=== PATIENT | male | born 1965 | race Caucasian/White ===

== ENCOUNTER 2017-11-15 23:52 | Emergency (ER) | payer MEDICAID ==
[~2017-11-15] VITALS: Ht 185.4 cm; Wt 81.6 kg
[2017-11-16] VITALS: BP 125/74
[2017-11-16] MEDS ORDERED: KEFLEX500 MG ORAL (01:36)
--- NOTE | 2017-11-16 01:37 | Emergency Room Report ---
History of Present Illness General Chief Complaint: Laceration Source: Patient Present Illness HPI Is a 51-year-old male who is left-hand dominant. He presents with a laceration to base of his left index finger. He was trying to open a metal can of being. He pushed the lid now and send a laceration. No other injury. He washed it out. Tetanus is up-to-date. Allergies: Coded Allergies: No Known Allergies (Unverified , 11/16/17) Patient History Past Medical History: see triage record, old chart reviewed Past Surgical History: none Pertinent Family History: none Social History: Denies: smoking Immunizations: UTD Reviewed Nursing Documentation: PMH: Agreed, PSxH: Agreed Nursing Documentation-PMH Past Medical History: No Stated History Review of Systems Eye: Denies: eye pain, blurred vision ENT: Denies: ear pain, nose congestion, throat swelling Respiratory: Denies: cough, shortness of breath Cardiovascular: Denies: chest pain, palpitations Gastrointestinal: Denies: abdominal pain, diarrhea, nausea, vomiting Musculoskeletal: Denies: back pain, joint pain Skin: Denies: rash Neurological: Denies: headache, numbness Endocrine: Denies: increased thirst, increased urine Hematologic/Lymphatic: Denies: easy bruising All Other Systems: negative except mentioned in HPI Physical Exam Vital Signs Date Time Temp Pulse Resp B/P (MAP) Pulse Ox O2 Delivery O2 Flow Rate FiO2 11/15/17 23:59 97.9 60 14 125/74 95 Room Air vitals normal Sp02 EP Interpretation: reviewed, normal General Appearance: well appearing, no apparent distress, alert Head: normocephalic, atraumatic Eyes: bilateral eye PERRL, bilateral eye EOMI ENT: hearing grossly normal, normal pharynx Neck: full range of motion, supple, no meningismus Respiratory: chest non-tender, lungs clear, normal breath sounds Cardiovascular #1: regular rate, rhythm, no murmur Gastrointestinal: normal bowel sounds, non tender, no mass, no organomegaly, no bruit, non-distended Musculoskeletal: back normal, gait/station normal, normal range of motion, other - 3 cm laceration to the base o MCP joint of the left index finger. No foreign body. No Tendon laceration. Psychiatric: mood/affect normal Skin: warm/dry Procedures Laceration/Wound Repair Laceration/Wound Repair : Consent: Verbal Wound Location: upper extremity Wound's Depth, Shape: linear, irregular Wound Length (cm): 3 Wound Explored: clean Irrigated w/ Saline (ccs): 1000 Betadine Prep?: Yes Anesthesia: 1% Lidocaine Volume Anesthetic (ccs): 2 Wound Repaired With: sutures Suture Size/Type: 4:0, proline Number of Sutures: 5 Patient Tolerated: Well Complications: None Medical Decision Making Diagnostic Impression: Primary Impression: Finger laceration Qualified Codes: S61.211A - Laceration without foreign body of left index finger without damage to nail, initial encounter ER Course Patient presents with a laceration to the base of the left index finger over the palm. No foreign body. No tendon laceration. We'll discharge home. Last Vital Signs Date Time Temp Pulse Resp B/P (MAP) Pulse Ox O2 Delivery O2 Flow Rate FiO2 11/16/17 00:00 97.9 60 14 125/74 95 Room Air Status: improved Disposition: HOME, SELF-CARE Condition: Improved Scripts Cephalexin* (KEFLEX*) 500 Mg Capsule 500 MG ORAL TID, #21 CAP 0 Refills Prov: HAKEEM PIPER M.D. 11/16/17 Patient Instructions: Laceration Care, Adult Additional Instructions: Sutures out in 10 days. Return if infected. HAKEEM PIPER M.D. Nov 16, 2017 01:36
[2017-11-16 01:45] VITALS: BP 125/74
== END 2017-11-16 01:40 | disposition home or self-care (01) ==
LOC: EMR 11-16 00:19
DX: S61.211A Laceration without foreign body of left index finger without damage to nail, initial encounter (principal); W26.8XXA Contact with other sharp object(s), not elsewhere classified, initial encounter; Y92.9 Unspecified place or not applicable
CPT/HCPCS: 12002; 99284; Z7502

== ENCOUNTER 2017-11-25 22:17 | Emergency (ER) | payer MEDICAID ==
[~2017-11-25] VITALS: Ht 185.4 cm; Wt 81.6 kg
[~2017-11-25 22:17] MED LIST: KEFLEX500 MG ORAL
[2017-11-25 22:35] VITALS: BP 120/78
[2017-11-25 22:50] VITALS: BP 122/74
[2017-11-25] MEDS ORDERED: CORTISPORIN EAR10 ML OTIC (22:53)
[2017-11-25 22:59] VITALS: BP 122/74
--- NOTE | 2017-11-26 02:21 | Emergency Room Report ---
History of Present Illness General Chief Complaint: Wound Recheck/Suture Removal Source: Patient Present Illness HPI Patient presents for evaluation of finger laceration Suture removal He had this placed approximately 10 days ago He feels area is healing well While he was here also complains of right ear pain He reports that he swims a lot And the pain has continued now over the past several days Denies any chest pain or shortness of breath Allergies: Coded Allergies: No Known Allergies (Unverified , 11/16/17) Patient History Past Medical History: see triage record Pertinent Family History: none Reviewed Nursing Documentation: PMH: Agreed, PSxH: Agreed Nursing Documentation-PMH Past Medical History: No Stated History Review of Systems All Other Systems: negative except mentioned in HPI Physical Exam Vital Signs Date Time Temp Pulse Resp B/P (MAP) Pulse Ox O2 Delivery O2 Flow Rate FiO2 11/25/17 22:27 97.8 61 18 117/74 96 Room Air 97.9 Sp02 EP Interpretation: reviewed, normal General Appearance: well appearing, no apparent distress Head: normocephalic, atraumatic Eyes: bilateral eye PERRL, bilateral eye EOMI ENT: other - Right ear canal does show some erythema, still patent, no perforation or tympanic membrane erythema Neck: supple, thyroid normal Respiratory: lungs clear Musculoskeletal: normal inspection Neurologic: alert, oriented x3, responsive Skin: other - [address] approximately left index finger on the palmar side Medical Decision Making Diagnostic Impression: Primary Impression: wound check Additional Impression: otitis externa ER Course She has clinical findings of otitis externa With regards to the sutures the area was cleansed 3 lateral sutures were removed 2 sutures more medially are left in place As there appears to be still continued feeling patient will require likely another 5-6 days Prior to attempt at removal Last Vital Signs Date Time Temp Pulse Resp B/P (MAP) Pulse Ox O2 Delivery O2 Flow Rate FiO2 11/25/17 22:59 98.2 74 16 122/74 99 Room Air 98.2 Status: improved Disposition: HOME, SELF-CARE Condition: Improved Scripts Neomycin/Polymyxin B Sulf/Hc* (CORTISPORIN EAR SOLUTION*) 10 Ml Solution 2 DROP OTIC FOUR TIMES A DAY for 7 Days, #1 EA Instill in affected ear as directed for 7 days Prov: FRANCHESCA DAVID D.O. 11/25/17 Referrals: NON PHYSICIAN (PCP) Patient Instructions: Otitis Externa, [id number], Wound Check Additional Instructions: 3 of the sutures were removed today, there are 2 sutures that are left in place. Please return approximately 4-5 days to have them removed FRANCHESCA DAVID D.O. Nov 26, 2017 02:21
== END 2017-11-25 22:59 | disposition home or self-care (01) ==
LOC: EMR 22:48
DX: S61.211D Laceration without foreign body of left index finger without damage to nail, subsequent encounter (principal); X58.XXXD Exposure to other specified factors, subsequent encounter; H60.91 Unspecified otitis externa, right ear; Z48.02 Encounter for removal of sutures
CPT/HCPCS: 99283

== ENCOUNTER 2017-11-30 17:57 | Emergency (ER) | payer MEDICAID ==
[~2017-11-30] VITALS: Ht 185.4 cm; Wt 81.6 kg
[~2017-11-30 17:57] MED LIST changes: +CORTISPORIN EAR10 ML OTIC
[2017-11-30 18:22] VITALS: BP 110/60
--- NOTE | 2017-11-30 18:35 | Emergency Room Report ---
History of Present Illness General Chief Complaint: Wound Recheck/Suture Removal Source: Patient Present Illness HPI 51-year-old male patient presents ER for wound recheck of sutures in left index finger. Patient was previously seen 2 weeks ago for laceration on palm of hand sustained while opening a can. Patient reports to sutures being placed for the laceration. Patient reports being seen for wound recheck 2 days after initial sutures were placed; states he was seen 7 days after initial wound recheck to have sutures removed; states sutures were not removed because wound was not "closed enough". Patient denies erythema, TTP, ecchymosis, edema. Patient denies pain with movement. Patient denies fever, chest pain, SOB. wound recheck left palmar MTP jint of index finger no signs of infeciton, no erythema, edmea, ecchymosis Allergies: Coded Allergies: No Known Allergies (Unverified , 11/16/17) Patient History Past Medical History: see triage record Reviewed Nursing Documentation: PMH: Agreed, PSxH: Agreed Nursing Documentation-PMH Past Medical History: No Stated History Review of Systems All Other Systems: negative except mentioned in HPI Physical Exam Vital Signs Date Time Temp Pulse Resp B/P (MAP) Pulse Ox O2 Delivery O2 Flow Rate FiO2 11/30/17 18:09 98.0 57 18 110/60 95 Room Air 98.1 Sp02 EP Interpretation: reviewed, normal General Appearance: well appearing, no apparent distress, alert, GCS 15, non- toxic Head: normocephalic, atraumatic Eyes: bilateral eye normal inspection, bilateral eye PERRL ENT: hearing grossly normal, normal pharynx, normal voice, uvula midline, moist mucus membranes Respiratory: normal inspection, lungs clear, normal breath sounds, no accessory muscle use, no wheezing, speaking full sentences Cardiovascular #1: regular rate, rhythm Musculoskeletal: back normal, digits/nails normal, gait/station normal, normal range of motion Neurologic: alert, oriented x3, responsive, motor strength/tone normal, normal gait Psychiatric: mood/affect normal Skin: no rash, warm/dry, palpation normal, other - 2 blue sutures in healed 1cm linear laceration on palmar crease over MTP of index finger of left hand Medical Decision Making PA Attestation Dr. Shi is my supervising physician with whom patient management has been discussed with. Diagnostic Impression: Primary Impression: Encounter for wound re-check ER Course 51 yo male patient presents to ER for wound check. DDx include but are not limited to wound check, cellulitis, contusion. No bleeding, erythema, edema, or signs of infection are present. 2 sutures were removed. Wound was cleaned and redressed. Bacitracin applied to site. Instructed patient on proper care of wound to prevent further injury. At this time pt. is stable for d/c to home. Will provide printed patient care instructions, and any necessary prescriptions. Patient instructed to follow with primary care provider for further treatment and referral as needed. Care plan and follow up instructions have been discussed with the patient prior to discharge. Patient reports understanding and agreement to treatment plan. Patient questions asked and answered. ER precautions given, patient instructed to return to ER immediately for any new or worsening of symptoms. Last Vital Signs Date Time Temp Pulse Resp B/P (MAP) Pulse Ox O2 Delivery O2 Flow Rate FiO2 11/30/17 18:22 98.1 18 110/60 95 Room Air 98.1 11/30/17 18:09 57 Disposition: HOME, SELF-CARE Condition: Stable Patient Instructions: Wound Check Additional Instructions: Followup with primary care provider for further treatment and referral. Take medications as directed. Patient questions asked and answered. ER precautions given, patient instructed to return to ER immediately for any new or worsening of symptoms. Rober Mehta Nov 30, 2017 18:35
[2017-11-30] MEDS ORDERED: Bacitracin Oint UD TOPIC ONE (18:45)
[2017-11-30 18:57] VITALS: BP 110/60
== END 2017-11-30 18:57 | disposition home or self-care (01) ==
LOC: EMR 18:35
DX: S61.412D Laceration without foreign body of left hand, subsequent encounter (principal); Z48.02 Encounter for removal of sutures
CPT/HCPCS: 99283

== ENCOUNTER 2019-02-07 10:55 | Emergency (ER) | payer MEDICAID ==
[~2019-02-07] VITALS: Ht 185.4 cm; Wt 81.6 kg
[2019-02-07 10:59] VITALS: BP 118/67
[2019-02-07] MEDS ORDERED: NKM (11:02)
[2019-02-07] MEDS ORDERED: GENTAMICIN SUL3.5 GM OP (11:54)
[2019-02-07 12:08] VITALS: BP 125/69
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
[2019-03-06] MEDS ORDERED: NKM (11:52)
[2019-03-06] MEDS ORDERED: TYLENOL EXTRA500 MG ORAL (13:41)
[2019-03-06] MEDS ORDERED: FUTURO RESTORI1 EACH MC (13:41)
== END 2019-02-07 12:10 | disposition home or self-care (01) ==
LOC: EMR 11:14
DX: H57.11 Ocular pain, right eye (principal)
CPT/HCPCS: 99282

== ENCOUNTER 2019-02-12 17:25 | Emergency (ER) | payer MEDICAID ==
[~2019-02-12] VITALS: Ht 185.4 cm; Wt 81.6 kg
[~2019-02-12 17:25] MED LIST changes: +GENTAMICIN SUL3.5 GM OP; +NKM
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
[2019-02-12 18:53] VITALS: BP 120/67
--- NOTE | 2019-02-12 18:55 | NUR ---
ED Nurse Note:pt. had x-rays done and bacitricin ointment was placed on left knee with dry dressing
[2019-02-12] MEDS ORDERED: Bacitracin Oint UD TOPIC ONE (19:00)
--- NOTE | 2019-02-12 19:10 | NUR ---
HAND-OFF: Report given to Laura.
--- NOTE | 2019-02-12 19:11 | NUR ---
ED Nurse Note: Received report from Melissa/HARSHIL. Pt is A/O X 4. VSS, will continue to monitor.
--- NOTE | 2019-02-12 19:35 | NUR ---
ED Nurse Note: Pt was sent down for CT.
[2019-02-12] MEDS ORDERED: Isovue-300 100ml vial INJ PRN (19:45)
--- NOTE | 2019-02-12 19:50 | NUR ---
ED Nurse Note: Pt returned from CT.
--- NOTE | 2019-02-12 20:23 | NUR ---
ED Nurse Note: Blood sample collected and sent to Lab.
[2019-02-12 20:40] LABS: BASOPHILS % (AUTO) 1.9 % (0.0-2.0); EOSINOPHILS % (AUTO) 3.7 % (0.0-3.0); HEMOGLOBIN 14.6 G/DL (14.2-18.0); LYMPHOCYTES % (AUTO) 30.5 % (20.0-45.0); MEAN CORPUSCULAR VOLUME 89 FL (80-99); MONOCYTES % (AUTO) 8.5 % (1.0-10.0); NEUTROPHILS % (AUTO) 55.4 % (45.0-75.0); PLATELET COUNT 187 K/UL (150-450); RED BLOOD COUNT 4.63 M/UL (4.70-6.10); RED CELL DISTRIBUTION WIDTH 10.5 % (11.6-14.8); WHITE BLOOD COUNT 9.7 K/UL (4.8-10.8)
[2019-02-12 20:58] LABS: ANION GAP 7 mmol/L (5-15); BLOOD UREA NITROGEN 17 mg/dL (7-18); CARBON DIOXIDE 27 MMOL/L (21-32); CHLORIDE 104 MMOL/L (98-107); CREATININE 0.8 MG/DL (0.55-1.30); POTASSIUM 3.7 MMOL/L (3.5-5.1); SODIUM 138 MMOL/L (136-145)
[2019-02-12] MEDS ORDERED: ACETAMINOPHEN-1 EAC1 ORAL (22:09)
[2019-02-12] MEDS ORDERED: ROBAXIN-750750 MG PO (22:09)
[2019-02-12] MEDS ORDERED: LIDODERM700 M1 TOPIC (22:09)
[2019-02-12] MEDS ORDERED: IBUPROFEN600 MG ORAL (22:09)
--- NOTE | 2019-02-12 22:21 | NUR ---
ED Nurse Note: Meds given as ordered.
[2019-02-12 22:26] VITALS: BP 124/63
--- NOTE | 2019-02-12 22:26 | NUR ---
ER DISCHARGE NOTE: Patient is cleared to be discharged per Ana Ruiz/JACE. X-ray and CT done, there is possible a spinal fracture noted. Pt is aox4 on room air with stable vital signs. Pt was given D/C and prescription instructions and was able to verbalize understanding. Pt's IV and ID band removed. Pt is able to ambulate with steady gait and took all belongings.
--- NOTE | 2019-02-13 08:44 | Diagnostic Imaging Report ---
Indication: Reason For Exam: PAIN Technique: Spiral acquisitions obtained through the thoracic spine. No IV contrast utilized. Multiplanar reconstructions were generated. Total dose length product 911.65 mGycm. CTDIvol(s) 22.02 mGy. Dose reduction achieved using automated exposure control Comparison: Plain radiograph one hour earlier Findings: There is slight loss of height of the T3 vertebral body, with a fracture line extending through the anterior corner. No evidence posterior retropulsion. There is an anterior wedge compression fracture deformity of the T7 vertebral body. This results in approximate 40% height loss. No evidence of disruption of the posterior wall or posterior retropulsion. The remaining vertebral body heights are preserved. The T7 fracture results in focal mild kyphotic deformity. The bony alignment is otherwise unremarkable. No other acute fractures. No dislocations. The disc spaces are largely preserved. There is multilevel early disc degeneration with vacuum formation noted. No significant disc bulge or protrusion, spinal stenosis, or neural foraminal stenosis is demonstrated. The included extraspinal soft tissues are unremarkable. Impression: T3 vertebral body mild compression fracture deformity. Presence of the fracture line indicates possible acuity. Correlate with clinical findings and consider MRI if considered clinically relevant Positive for T7 anterior wedge compression fracture, acuity indeterminate. Likewise considered MRI for better characterization if clinically relevant This agrees with the preliminary interpretation provided overnight by [facility] teleradiology service. The CT scanner at [facility] is accredited by the [employer] and the scans are performed using protocols designed to limit radiation exposure to as low as reasonably achievable to attain images of sufficient resolution adequate for diagnostic evaluation.
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
--- NOTE | 2019-02-13 12:10 | Diagnostic Imaging Report ---
Indications: Reason For Exam: PAIN Technique: 3 views of the thoracic spine Comparison: None Findings: There is a compression fracture deformity of the T7 vertebral body, with approximately 40% anterior height loss and focal kyphotic deformity. There is also mild compression fracture deformity of the T3 vertebral body with slight anterior height loss. No other acute fractures. No dislocations. Vertebral body heights are preserved. The disc spaces are preserved. The pedicles are intact. Impression: Acuity indeterminant T7 compression fracture. Mild T3 compression fracture as well This agrees with the preliminary interpretation provided overnight by [facility].
== END 2019-02-12 22:26 | disposition home or self-care (01) ==
LOC: EMR 18:01
DX: S63.601A Unspecified sprain of right thumb, initial encounter (principal); S80.811A Abrasion, right lower leg, initial encounter; S50.812A Abrasion of left forearm, initial encounter; S40.812A Abrasion of left upper arm, initial encounter; S80.212A Abrasion, left knee, initial encounter; S80.211A Abrasion, right knee, initial encounter; S50.312A Abrasion of left elbow, initial encounter; S80.11XA Contusion of right lower leg, initial encounter; S50.12XA Contusion of left forearm, initial encounter; S40.022A Contusion of left upper arm, initial encounter; V23.4XXA Motorcycle driver injured in collision with car, pick-up truck or van in traffic accident, initial encounter; Y92.410 Unspecified street and highway as the place of occurrence of the external cause; F07.81 Postconcussional syndrome; M62.838 Other muscle spasm; S22.069A Unspecified fracture of T7-T8 vertebra, initial encounter for closed fracture
CPT/HCPCS: 36415; 71260; 72070; 72128; 73130; 74177; 80048; 85025; 99284; Q9967

== ENCOUNTER 2019-02-19 08:31 | Emergency (ER) | payer MEDICAID ==
[~2019-02-19] VITALS: Ht 185.4 cm; Wt 82.1 kg
[~2019-02-19 08:31] MED LIST changes: +ACETAMINOPHEN-1 EAC1 ORAL; +IBUPROFEN600 MG ORAL; +LIDODERM700 M1 TOPIC; +ROBAXIN-750750 MG PO
[2019-02-19 08:46] VITALS: BP 113/63
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
--- NOTE | 2019-02-19 10:07 | Diagnostic Imaging Report ---
Indication: Headache Technique: Contiguous 5 mm thick transaxial imaging of the head obtained in a Siemens Sensation [address] scanner. Soft tissue and bone windows generated. Automatic Exposure Control was utilized. Total Dose length Product (DLP): 1369.[address] Dose Index Volume (CTDIvol): 70.38 mGy Comparison: none Findings: The size and configuration of the cortical sulci, basal cisterns, and ventricles are within normal limits for age. There is no mass effect, midline shift, or edema identified. There is no evidence of acute hemorrhage or abnormal intra-axial or extra-axial fluid collections. The bones and soft tissues are unremarkable. There is mucosal thickening within the visualized paranasal sinuses mainly ethmoid. Mastoids are clear bilaterally. Impression: No mass effect, edema or acute bleed. Sinusitis The CT scanner at [facility] is accredited by the [employer] and the scans are performed using dose optimization techniques as appropriate to a performed exam including Automatic Exposure control.
[2019-02-19] MEDS ORDERED: AUGMENTIN 875-1 EAC1 ORAL (11:10)
[2019-02-19 11:14] VITALS: BP 113/63
--- NOTE | 2019-02-19 11:15 | NUR ---
ER DISCHARGE NOTE: Patient is cleared to be discharged per ERMD, pt is aox4, on room air, with stable vital signs. pt was given dc and prescription instructions, pt was able to verbalize understanding, pt is able to ambulate with steady gait. pt took all belongings.
== END 2019-02-19 11:15 | disposition home or self-care (01) ==
LOC: EMR 09:02
DX: R51 Headache (principal); J32.9 Chronic sinusitis, unspecified
CPT/HCPCS: 70450; 99284

== ENCOUNTER 2019-08-30 11:09 | Emergency (ER) | payer MEDICAID ==
[~2019-08-30] VITALS: Ht 182.9 cm; Wt 81.6 kg
[~2019-08-30 11:09] MED LIST changes: +AUGMENTIN 875-1 EAC1 ORAL; +FUTURO RESTORI1 EACH MC; +TYLENOL EXTRA500 MG ORAL
[2019-08-30 11:20] VITALS: BP 117/71
[2019-08-30] MEDS ORDERED: Ketorolac 30mg Inj IV ONE (11:45)
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
--- NOTE | 2019-08-30 12:07 | NUR ---
ED Nurse Note: Patient went to CT scan.
[2019-08-30 12:17] LABS: EOSINOPHILS % (AUTO) 3.2 % (0.0-3.0); HEMATOCRIT 40.6 % (42.0-52.0); HEMOGLOBIN 15.1 G/DL (14.2-18.0); LYMPHOCYTES % (AUTO) 21.7 % (20.0-45.0); MEAN CORPUSCULAR VOLUME 87 FL (80-99); MONOCYTES % (AUTO) 15.6 % (1.0-10.0); NEUTROPHILS % (AUTO) 58.6 % (45.0-75.0); PLATELET COUNT 170 K/UL (150-450); RED BLOOD COUNT 4.69 M/UL (4.70-6.10); RED CELL DISTRIBUTION WIDTH 9.4 % (11.6-14.8); WHITE BLOOD COUNT 5.7 K/UL (4.8-10.8)
--- NOTE | 2019-08-30 12:25 | NUR ---
ED Nurse Note: Patient back from CT.
[2019-08-30 12:33] LABS: ANION GAP 8 mmol/L (5-15); BLOOD UREA NITROGEN 12 mg/dL (7-18); CALCIUM 8.7 MG/DL (8.5-10.1); CARBON DIOXIDE 28 MMOL/L (21-32); CHLORIDE 103 MMOL/L (98-107); CREATININE 0.8 MG/DL (0.55-1.30); POTASSIUM 4.6 MMOL/L (3.5-5.1); SODIUM 139 MMOL/L (136-145)
[2019-08-30 12:37] LABS: ALANINE AMINOTRANSFERASE 53 U/L (12-78); ALBUMIN 3.7 G/DL (3.4-5.0); ALBUMIN/GLOBULIN RATIO 1.1 (1.0-2.7); ALKALINE PHOSPHATASE 61 U/L (46-116); ASPARTATE AMINO TRANSFERASE 26 U/L (15-37); BILIRUBIN,TOTAL 0.5 MG/DL (0.2-1.0)
--- NOTE | 2019-08-30 12:39 | NUR ---
ED Nurse Note: UA SENT TO LAB
[2019-08-30 12:54] LABS: APPEARANCE,URINE CLEAR; BILIRUBIN, URINE NEGATIVE (NEGATIVE); COLOR,URINE PALE YELLOW; GLUCOSE, URINE (UA) NEGATIVE (NEGATIVE); KETONES,URINE NEGATIVE (NEGATIVE); LEUKOCYTE ESTERASE ,URINE NEGATIVE (NEGATIVE); NITRITE,URINE NEGATIVE (NEGATIVE); PH,URINE 7 (4.5-8.0); PROTEIN,URINE NEGATIVE (NEGATIVE); UROBILINOGEN,URINE NORMAL MG/DL (0.0-1.0)
[2019-08-30 13:05] VITALS: BP 115/70
[2019-08-30] MEDS ORDERED: IBUPROFEN600 MG ORAL (13:14)
[2019-08-30] MEDS ORDERED: TRAMADOL HCL50 MG ORAL (13:14)
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
[2019-08-30 13:34] VITALS: BP 118/75
== END 2019-08-30 13:34 | disposition home or self-care (01) ==
LOC: EMR 11:35
DX: S70.02XA Contusion of left hip, initial encounter (principal); S50.01XA Contusion of right elbow, initial encounter; W19.XXXA Unspecified fall, initial encounter; Y92.9 Unspecified place or not applicable
CPT/HCPCS: 36415; 72192; 73080; 80053; 80307; 81001; 85025; 85610; 85730; 96361; 96374; J1885; Z7502; 99284; J7030

== ENCOUNTER 2019-12-01 21:04 | Emergency (ER) | payer MEDICAID ==
[~2019-12-01] VITALS: Ht 182.9 cm; Wt 81.6 kg
[~2019-12-01 21:04] MED LIST changes: +TRAMADOL HCL50 MG ORAL
[2019-12-01 21:33] VITALS: BP 122/74
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
[2019-12-01] MEDS ORDERED: IBUPROFEN600 MG ORAL (22:06)
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
[2019-12-01 22:13] VITALS: BP 128/75
--- NOTE | 2019-12-01 22:13 | NUR ---
ER DISCHARGE NOTE: Patient is cleared to be discharged per ERMD, pt is aox4, on room air, with stable vital signs. pt was given dc and prescription instructions, pt was able to verbalize understanding, pt id band removed. pt is able to ambulate with steady gait. pt took all belongings. pt stable upon discharge.
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
== END 2019-12-01 22:13 | disposition home or self-care (01) ==
LOC: EMR 22:13
DX: S70.01XA Contusion of right hip, initial encounter (principal); V03.90XA Pedestrian on foot injured in collision with car, pick-up truck or van, unspecified whether traffic or nontraffic accident, initial encounter; Y92.481 Parking lot as the place of occurrence of the external cause
CPT/HCPCS: 73501; Z7502; 99283